=== PATIENT | male | born 1970 | race American Indian/Alaskan Native ===

== ENCOUNTER 2017-11-21 09:06 | Emergency (ER) | payer SELFPAY ==
[2017-11-21 10:16] VITALS: BP 146/105
--- NOTE | 2017-11-21 12:37 | Emergency Department Report ---
Chief Complaint: Weakness Stated Complaint: PAIN/THROWING UP BLOOD Time Seen by Provider: 11/21/17 12:04 - HPI History of Present Illness: States he has been sick with the chills, fatigue, for nearly two weeks, went to urgent care, got steroids, which made him feel worse, still with fatigue, states he thought he needed rest, says he couldn't tolerate the medicine, as it made him vomit. No chest pain, SOB, abd pain. No PMHx, admits to smoking a pack a day for 20 years, no ETOH, no illicit drug use. - ROS Review of Systems: See HPI - Exam Vital Signs: Vital Signs 11/21/17 10:12 Temperature 98 F Pulse Rate 74 Respiratory 18 Rate Blood Pressure 146/105 O2 Sat by Pulse 99 Oximetry Physical Exam: NAD, NCAT, PERRL, EOMI, CTA, RRR, No murmur, NT ND +BS MSE screening note: Focused history and physical exam performed. Due to findings the following was ordered: CBC, CMP, UA, TSH ED Disposition for MSE Condition: Stable Referrals: PRIMARY CARE, [Primary Care Provider] - 3-5 Days
--- NOTE | 2017-11-21 12:57 | Emergency Department Report ---
ED General Adult HPI - General Chief complaint: Weakness Stated complaint: PAIN/THROWING UP BLOOD Time Seen by Provider: 11/21/17 12:04 Source: patient Mode of arrival: Ambulatory Limitations: No Limitations - History of Present Illness Initial comments: States he has been sick with the chills, fatigue, for nearly two weeks, went to urgent care, got steroids, which made him feel worse, still with fatigue, states he thought he needed rest, says he couldn't tolerate the medicine, as it made him vomit. No chest pain, SOB, abd pain. No PMHx, admits to smoking a pack a day for 20 years, no ETOH, no illicit drug use. Onset/Timin (1 1/2 weeks ) -: week(s) Location: head Radiation: non-radiation Severity scale (0 -10): 4 Quality: aching Consistency: intermittent Worsens with: other (activity ) Associated Symptoms: cough, fever/chills, headaches, malaise, nausea/vomiting, weakness Treatments Prior to Arrival: none - Related Data Previous Rx's Medication Instructions Recorded Last Taken Type metFORMIN [Glucophage] 500 mg PO BID #60 tablet 11/21/17 Unknown Rx Allergies Allergy/AdvReac Type Severity Reaction Status Date / Time No Known Allergies Allergy Verified 11/21/17 12:17 ED Review of Systems ROS: Stated complaint: PAIN/THROWING UP BLOOD Other details as noted in HPI Constitutional: denies: chills, fever Eyes: denies: eye pain, eye discharge, vision change ENT: throat pain, congestion. denies: ear pain Respiratory: cough. denies: shortness of breath, wheezing Cardiovascular: denies: chest pain, palpitations, paroxysmal nocturnal dyspnea Endocrine: no symptoms reported Gastrointestinal: nausea. denies: abdominal pain, diarrhea, constipation, hematemesis, melena, hematochezia Genitourinary: denies: urgency, dysuria Musculoskeletal: denies: back pain, joint swelling, arthralgia Skin: denies: rash, lesions Neurological: headache. denies: weakness, numbness, paresthesias, abnormal gait , vertigo Psychiatric: denies: anxiety, depression Hematological/Lymphatic: denies: easy bleeding, easy bruising ED Past Medical Hx - Past Medical History Previous Medical History?: No - Surgical History Past Surgical History?: No - Social History Smoking Status: Never Smoker - Medications Home Medications: Home Medications Medication Instructions Recorded Confirmed Last Taken Type metFORMIN [Glucophage] 500 mg PO BID #60 tablet 11/21/17 Unknown Rx ED Physical Exam - General Limitations: No Limitations General appearance: alert, in no apparent distress - Head Head exam: Present: atraumatic, normocephalic - Eye Eye exam: Present: normal appearance, PERRL, EOMI Pupils: Present: normal accommodation - ENT ENT exam: Present: mucous membranes moist, TM's normal bilaterally - Expanded ENT Exam Expanded Throat exam: Positive: tonsillar erythema. Negative: tonsillomegaly, tonsillar exudate, R peritonsillar mass, L peritonsillar mass - Neck Neck exam: Present: normal inspection, full ROM. Absent: tenderness, meningismus, lymphadenopathy, thyromegaly - Respiratory Respiratory exam: Present: normal lung sounds bilaterally. Absent: respiratory distress, wheezes, rhonchi, stridor, chest wall tenderness - Cardiovascular Cardiovascular Exam: Present: regular rate, normal rhythm, normal heart sounds. Absent: systolic murmur, diastolic murmur, rubs, gallop - GI/Abdominal GI/Abdominal exam: Present: soft, normal bowel sounds - Rectal Rectal exam: Present: deferred - Extremities Exam Extremities exam: Present: normal inspection, full ROM. Absent: tenderness - Back Exam Back exam: Present: normal inspection, full ROM. Absent: tenderness, rash noted - Neurological Exam Neurological exam: Present: alert, oriented X3, CN II-XII intact, normal gait, reflexes normal. Absent: motor sensory deficit - Expanded Neurological Exam Expanded Patient oriented to: Present: person, place, time Speech: Present: fluid speech Cranial nerves: EOM's Intact: Normal, Gag Reflex: Normal, Tongue Deviation: Normal, Nystagmus: Normal, Facial Sensation: Normal Cerebellar function: Finger to Nose: Normal, Heel to Voss: Normal, Romberg: Normal Upper motor neuron: Declan Neglect: Normal, Pronator Drift: Normal, Babinski Sign : Normal, Sensory Extinction: Normal Sensory exam: Upper Extremity Light Touch: Normal, Upper Extremity Pin Prick: Normal, Upper Extremity Temperature: Normal, UE 2 Point Discrimination: Normal, Lower Extremity Light Touch: Normal, Lower Extremity Pin Prick: Normal, Lower Extremity Temperature: Normal, LE 2 Point Discrimination: Normal Motor strength exam: RUE: 5, LUE: 5, RLE: 5, LLE: 5 DTR: bicep (R): 2+, bicep (L): 2+, tricep (R): 2+, tricep (L): 2+, knee (R): 2+ , knee (L): 2+, ankle (R): 2+, ankle (L): 2+ Best Eye Response ([place]): (4) open spontaneously Best Motor Response ([place]): (6) obeys commands Best Verbal Response ([place]): (5) oriented Waldo Total: 15 - Psychiatric Psychiatric exam: Present: normal affect, normal mood - Skin Skin exam: Present: warm, dry, intact, normal color. 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 and chills weakness intermittently for 2 weeks patient states nausea and vomiting yesterday patient denies diabetes I her chemistry today glucose 35 6 mg/dL WBCs at 13 there is no cough no fever no chills at this time CMP sodium 133 chloride 97 potassium 5.1 blood glucose 356 Gap: 22 , plan normal saline 1 L IV regular insulin 7 units subcutaneous repeat Accu-Chek , patient refuses admission for diagnoses new onset diabetes advises "I will see outpatient doctor I cannot stay in hospital " if the blood glucose response to treatment plan: DC to self start metformin 500 mg by mouth twice a day patient given directions for same including possible upset stomach , instruction on glucose meter a follow up primary care in 2-3 days reassess: Accucheck: pt given rx for metformin 500 mg po bid , accucheck ac /hs , follow up with Dr. Santizo in 2 days, pt verbalized agreement and understanding of same. Critical care attestation.: If time is entered above; I have spent that time in minutes in the direct care of this critically ill patient, excluding procedure time. ED Disposition Clinical Impression: Diabetes mellitus Qualifiers: Diabetes mellitus type: type 2 Diabetes mellitus complication status: without complication Diabetes mellitus alf insulin use: without alf use Qualified Code(s): E11.9 - Type 2 diabetes mellitus without complications Disposition: DC-01 TO HOME OR SELFCARE Is pt being admited?: No Does the pt Need Aspirin: No Condition: Good Instructions: Diabetes Mellitus Type 2 in Adults (ED), Metformin (By mouth) Prescriptions: metFORMIN [Glucophage] 500 mg PO BID #60 tablet Referrals: PRIMARY CARE, [Primary Care Provider] - 3-5 Days Forms: Work/School Release Form(ED) Time of Disposition: 15:31
[2017-11-21 12:59] LABS: Hematocrit 44.7 % (35.5-45.6); Hemoglobin 14.7 gm/dl (11.8-15.2); Mean Corpuscular HGB Conc 33 % (32-34); Mean Corpuscular Hemoglobin 29 pg (28-32); Mean Corpuscular Volume 87 fl (84-94); Platelet Count 262 K/mm3 (140-440); Red Blood Count 5.13 M/mm3 (3.65-5.03)
[2017-11-21 13:14] LABS: BUN/Creatinine Ratio 12; Blood Urea Nitrogen 11 mg/dL (9-20); Calcium 8.9 mg/dL (8.4-10.2); Hemolysis Index 69
[2017-11-21] MEDS ORDERED: NACL 0.9% 1000 ML 1,000 ML IV ONE (13:57)
== END 2017-11-21 16:00 | disposition home or self-care (01) ==
LOC: ED 09:06
DX: E11.9 Type 2 diabetes mellitus without complications (principal); Z79.84 Long term (current) use of oral hypoglycemic drugs
CPT/HCPCS: 36415; 80048; 82962; 85027; 96360; 96372; 99283; J7030; J1815